=== PATIENT | female | born 1955 ===

== ENCOUNTER 2024-12-22 20:51 | Inpatient (IN) | payer MEDICARE ==
[2024-12-22 22:17] LABS: BASOPHILS ABSOLUTE AUTO 0.05 K/uL (0.00-0.10); BASOPHILS PERCENT AUTO 1.2 % (0.1-1.3); EOSINOPHILS ABSOLUTE AUTO 0.07 K/uL (0.00-0.40); EOSINOPHILS PERCENT AUTO 1.7 % (0.0-5.4); HEMATOCRIT 33.3 % (34.3-46.0); HEMOGLOBIN 11.8 g/dL (11.2-15.5); IMMATURE GRAN ABSOLUTE AUTO 0.01 K/uL (0.00-0.23); IMMATURE GRAN PERCENT AUTO 0.2 % (0.0-0.7); LYMPHOCYTES ABSOLUTE AUTO 1.53 K/uL (0.8-3.3); LYMPHOCYTES PERCENT AUTO 36.6 % (11.4-47.7); MEAN CORPUSCULAR HEMOGLOBIN 36.4 pg (31.6-35.5); MEAN CORPUSCULAR HGB CONC 35.4 g/dL (31.6-35.5); MEAN CORPUSCULAR VOLUME 102.8 fL (81.4-99.0); MONOCYTES ABSOLUTE AUTO 0.29 K/uL (0.20-0.90); MONOCYTES PERCENT AUTO 6.9 % (3.3-12.6); NEUTROPHILS ABSOLUTE AUTO 2.23 K/uL (1.0-7.6); NEUTROPHILS PERCENT AUTO 53.4 % (40.0-78.1); PLATELET COUNT,PLT 76 K/uL (130-375); RED BLOOD CELL COUNT 3.24 M/uL (3.77-5.24); WHITE BLOOD CELL COUNT,WBC 4.2 K/uL (3.2-11.0)
[2024-12-22 22:37] LABS: A/G RATIO 1.2 (1.2-2.2); ALANINE AMINOTRANSFERASE,ALT 161 U/L (12-78); ALBUMIN 3.7 g/dL (3.4-5.0); ALKALINE PHOSPHATASE 71 U/L (46-116); ANION GAP 11.1 mmol/L (5.0-14.0); ASPARTATE AMNIOTRANSFERASE,AST 197 U/L (15-37); BILIRUBIN TOTAL 0.3 mg/dL (0.2-1.0); BLOOD UREA NITROGEN,BUN 26 mg/dL (7-18); CALCIUM 9.8 mg/dL (8.5-10.1); CARBON DIOXIDE,CO2 27 mmol/L (21-32); CHLORIDE,CL 102 mmol/L (100-108); EST CRCL DRUG DOSING (CG) 43.92 mL/min; ESTIMATED GFR 61 mL/min (>60); GLUCOSE RANDOM 103 mg/dL (74-106); POTASSIUM,K 4.1 mmol/L (3.6-5.2); PROTEIN TOTAL,TP 6.8 g/dL (6.4-8.2); SODIUM,NA 140 mmol/L (140-148)
[2024-12-23] MEDS ORDERED: Naloxone 0.4 MG/ML SDV IVPUSH PRN ×2 (01:41→01:58)
[2024-12-23] MEDS: HYDROmorphone 0.5 MG/0.5 ML Syringe IVPUSH ONE (01:51)
[2024-12-23] MEDS ORDERED: Sodium Chloride 0.9% 10 ML Syringe FLUSH PRN (01:58)
[2024-12-23] MEDS ORDERED: Albuterol 0.083% 2.5 MG/3 ML Neb Soln NEB PRN (01:58)
[2024-12-23] MEDS ORDERED: Nicotine Polacrilex 2 MG Gum CHEW PRN (01:58)
[2024-12-23] MEDS: Nicotine 14 MG/24 Hr Patch TRDERM SCH (02:37)
[2024-12-23] MEDS: Sodium Chloride 0.9% 1,000 ML IV SCH (02:38)
[2024-12-23] MEDS: oxyCODONE 5 MG Tab PO PRN (02:45)
[2024-12-23 06:19] LABS: HEMATOCRIT 29.8 % (34.3-46.0); HEMOGLOBIN 10.8 g/dL (11.2-15.5); MEAN CORPUSCULAR HEMOGLOBIN 36.7 pg (31.6-35.5); MEAN CORPUSCULAR HGB CONC 36.2 g/dL (31.6-35.5); MEAN CORPUSCULAR VOLUME 101.4 fL (81.4-99.0); RED BLOOD CELL COUNT 2.94 M/uL (3.77-5.24)
[2024-12-23 06:37] LABS: INR 1.1; PROTHROMBIN TIME 11.1 sec (9.2-10.6)
[2024-12-23 06:40] LABS: A/G RATIO 1.2 (1.2-2.2); ALANINE AMINOTRANSFERASE,ALT 128 U/L (12-78); ALBUMIN 3.3 g/dL (3.4-5.0); ALKALINE PHOSPHATASE 61 U/L (46-116); ASPARTATE AMNIOTRANSFERASE,AST 138 U/L (15-37); BILIRUBIN TOTAL 0.4 mg/dL (0.2-1.0); BLOOD UREA NITROGEN,BUN 20 mg/dL (7-18); CALCIUM 8.9 mg/dL (8.5-10.1); CARBON DIOXIDE,CO2 28 mmol/L (21-32); CHLORIDE,CL 102 mmol/L (100-108); CREATININE 0.7 mg/dL (0.6-1.0); EST CRCL DRUG DOSING (CG) 62.74 mL/min; ESTIMATED GFR 94 mL/min (>60); GLUCOSE RANDOM 93 mg/dL (74-106); POTASSIUM,K 3.8 mmol/L (3.6-5.2); PROTEIN TOTAL,TP 6.1 g/dL (6.4-8.2); SODIUM,NA 138 mmol/L (140-148)
[2024-12-23 06:43] LABS: ANION GAP 11.8 mmol/L (5.0-14.0)
[2024-12-23] MEDS: HYDROmorphone 0.5 MG/0.5 ML Syringe IVPUSH PRN (07:55)
[2024-12-23] MEDS: Magnesium Sulf/Wat 2 GM/50 mL 2 GM in Premix Bag 1 BAG IV SCH (09:33)
[2024-12-23] MEDS: Magnesium Oxide 400 MG Tab PO SCH (09:33)
[2024-12-23] MEDS ORDERED: ceFAZolin 2 GM in Sodium Chloride 0.9% 50 ML IV ONE (09:44)
[2024-12-23] MEDS ORDERED: ceFAZolin 2 GM in Premix Bag 1 BAG IV ONE (10:00)
[2024-12-23] MEDS: Ondansetron 4 MG/2 ML SDV IVPUSH PRN (14:07)
[2024-12-23] MEDS ORDERED: Bupivacaine 0.5% 30 ML SDV ONE (15:07)
[2024-12-23] MEDS: ceFAZolin 2 GM in Premix Bag 1 BAG IV ONE (15:13)
[2024-12-23] MEDS: Sodium Chloride 0.9% 1,000 ML IV ONE (15:14)
[2024-12-23] MEDS ORDERED: Propofol 200 MG/20 ML SDV ONE (15:17)
[2024-12-23] MEDS ORDERED: Midazolam 1 MG/ML 2 ML SDV ONE (15:17)
[2024-12-23] MEDS ORDERED: fentaNYL 100 MCG/2 ML SDV ONE (15:17)
[2024-12-23] MEDS: HYDROmorphone 2 MG Tab PO PRN (20:11)
[2024-12-23] MEDS: Cyclobenzaprine 10 MG Tab PO PRN (21:51)
[2024-12-23] MEDS: ceFAZolin 1 GM in Premix Bag 1 BAG IV SCH (22:15)
[2024-12-23] MEDS: Sodium Chloride 0.9% 50 ML ONE (22:15)
[2024-12-23] MEDS: ceFAZolin 1 GM Vial ONE (22:15)
[2024-12-24] MEDS: HYDROmorphone 2 MG Tab PO PRN (02:03)
[2024-12-24] MEDS: Acetaminophen 325 MG Tab PO PRN (05:34)
[2024-12-24 06:04] LABS: CALCIUM 7.6 mg/dL (8.5-10.1); CREATININE 0.6 mg/dL (0.6-1.0); EST CRCL DRUG DOSING (CG) 73.2 mL/min; POTASSIUM,K 3.8 mmol/L (3.6-5.2)
[2024-12-24 06:10] LABS: ANION GAP 7.8 mmol/L (5.0-14.0)
[2024-12-24] MEDS: Aspirin 325 MG Tab.EC PO SCH (08:18)
[2024-12-24] MEDS: Sodium Chloride 0.9% 1,000 ML IV SCH (17:35)
[2024-12-25] MEDS: Polyethylene Glycol 3350 Powder 17 GM Packet PO PRN (09:26)
== END 2024-12-28 14:30 | disposition home or self-care (01) | DRG 522 ==
LOC: JP.ED 20:51 → JP.MS 23:22
PROVIDERS: ADMIT Hospitalist; ATTEND Internal Medicine
PROC: 0SRS0JZ Replacement of Left Hip Joint, Femoral Surface with Synthetic Substitute, Open Approach (ICD-10-PCS; principal; 2024-12-22)
DX: S72.002A Fracture of unspecified part of neck of left femur, initial encounter for closed fracture (principal); F17.210 Nicotine dependence, cigarettes, uncomplicated; W01.198A Fall on same level from slipping, tripping and stumbling with subsequent striking against other object, initial encounter; E86.0 Dehydration; F10.90 Alcohol use, unspecified, uncomplicated; F41.9 Anxiety disorder, unspecified; F32.A Depression, unspecified; Y92.009 Unspecified place in unspecified non-institutional (private) residence as the place of occurrence of the external cause; Y93.01 Activity, walking, marching and hiking; W19.XXXA Unspecified fall, initial encounter; F17.200 Nicotine dependence, unspecified, uncomplicated; M81.0 Age-related osteoporosis without current pathological fracture; Z90.49 Acquired absence of other specified parts of digestive tract; Z98.891 History of uterine scar from previous surgery
CPT/HCPCS: 01210-QZ; 36415; 72170; 72170-26; 73502-26-LT; 73502-LT; 80048; 80053; 83735; 85018; 85025; 85027; 85610; 93005; 93010; 97110-GP; 97116-GP; 97161-GP; 97165-GO; 97530-GP; 97535-GO; 99222; 99231; 99232; 99238; 99284; A9270-GY; C1776; J0665; J0689; J0690; J2250; J2405; J2704; J3010; J3475; J7030